=== PATIENT | female | born 1970 | race Caucasian/White ===

== ENCOUNTER 2021-09-21 17:30 | Outpatient (CLI) | payer OTHER ==
[2021-09-22 00:51] LABS: SARS-CoV-2 PCR by NAA Not Detected (NotDetected)
== END 2021-09-21 17:31 | disposition home or self-care (01) ==
LOC: CSHLAB 17:30
PROVIDERS: ATTEND Internal Medicine Gastroenterology
DX: Z20.822 Contact with and (suspected) exposure to COVID-19 (principal); Z12.11 Encounter for screening for malignant neoplasm of colon
CPT/HCPCS: U0003; U0005

== ENCOUNTER 2021-09-24 07:20 | Day surgery (SDC) | payer OTHER ==
[2021-09-22 11:34] VITALS: BMI 27.4
[2021-09-24] MEDS ORDERED: Lidocaine 1% MPF 2 ML VIAL ONE (08:14)
[2021-09-24] MEDS ORDERED: PROPOFOL 60 ML ONE (09:09)
== END 2021-09-24 10:22 | disposition home or self-care (01) ==
LOC: CSHSDC 07:20
PROVIDERS: ATTEND Internal Medicine Gastroenterology
PROC: 0DJD8ZZ Inspection of Lower Intestinal Tract, Via Natural or Artificial Opening Endoscopic (ICD-10-PCS; principal; 2021-09-24)
DX: Z12.11 Encounter for screening for malignant neoplasm of colon (principal); K64.9 Unspecified hemorrhoids; I10 Essential (primary) hypertension; J45.909 Unspecified asthma, uncomplicated
CPT/HCPCS: J2704